=== PATIENT | male | born 2005 | race African-American/Black ===

== ENCOUNTER 2024-10-04 20:41 | Emergency (ER) | payer OTHER ==
[2024-10-04] MEDS ORDERED: Ketorolac Tromethamine 30 MG (1 mL) VIAL ONE (22:30)
[2024-10-04] MEDS ORDERED: Ondansetron PF 4 MG/2 ML Vial ONE (22:30)
[2024-10-04] MEDS ORDERED: HYDROmorphone 0.5 MG/0.5 ML SYRINGE ONE (22:30)
[2024-10-04 23:06] LABS: Hematocrit 22.9 % (42.0-52.0); Hemoglobin 8.2 g/dL (14.0-18.0); Mean Corpuscular Hemoglobin 35.7 pg (27.0-31.0); Mean Corpuscular Volume 99.6 fL (78.0-98.0); Platelet Count 344 10x3/uL (130-400); Red Blood Cell (RBC) Count 2.30 mill/uL (4.70-6.10); White Blood Cell (WBC) Count 14.79 10x3/uL (4.8-10.8)
[2024-10-04 23:31] LABS: Anisocytosis SLIGHT = 6-15 cells HPF (0-5); Nucleated RBC (Manual Ct) 3 % (0); Platelet Adequacy Comment Platelets Normal; Polychromasia MODERATE = 3-4 cells HPF (0-2); Sickle Cells SLIGHT = 1-5 cells HPF (None Seen); Smudge Cells 17.8 %; Target Cells SLIGHT = 2-5 cells HPF (0-1)
[2024-10-04 23:33] LABS: ALT (SGPT) Less than 7 U/L (Less than 45); AST (SGOT) 28 U/L (11-34); Albumin 4.3 g/dL (3.1-4.5); Alkaline Phosphatase 81 U/L (40-110); Anion Gap 13 mmol/L (10-20); BUN (Urea Nitrogen) 9 mg/dL (8.9-20.6); Bilirubin, Total 1.7 mg/dL (0.3-1.2); Calc. Creatinine Clearance 0 mL/min (70-130); Calcium 8.4 mg/dL (7.8-10.44); Carbon Dioxide 22 mmol/L (22-29); Chloride 107 mmol/L (98-107); Globulin 3.1 g/dL (2.4-3.5); Glucose 90 mg/dL (70-105); Potassium 3.5 mmol/L (3.5-5.1); Sodium 138 mmol/L (136-145)
== END 2024-10-05 01:19 | disposition home or self-care (01) ==
LOC: ERS 20:41
DX: D57.00 Hb-SS disease with crisis, unspecified (principal); D64.9 Anemia, unspecified; B20 Human immunodeficiency virus [HIV] disease; Z55.6 Problems related to health literacy; Z79.899 Other long term (current) drug therapy
CPT/HCPCS: 80053; 83605; 85025; 85046; 93005; 96374; 96375; 96376; J1171; J1885

== ENCOUNTER 2024-12-03 18:08 | Inpatient (IN) | payer OTHER ==
[2024-12-03] MEDS ORDERED: diphenhydrAMINE 50 MG/ML VIAL ONE (18:41)
[2024-12-03 19:06] LABS: ALT (SGPT) Less than 7 U/L (Less than 45); AST (SGOT) 35 U/L (11-34); Albumin 4.8 g/dL (3.1-4.5); Alkaline Phosphatase 92 U/L (40-110); Anion Gap 13 mmol/L (10-20); BUN (Urea Nitrogen) 6 mg/dL (8.9-20.6); Bilirubin, Total 1.9 mg/dL (0.3-1.2); Calc. Creatinine Clearance 0 mL/min (70-130); Calcium 9.6 mg/dL (7.8-10.44); Carbon Dioxide 25 mmol/L (22-29); Chloride 106 mmol/L (98-107); Globulin 3.6 g/dL (2.4-3.5); Glucose 88 mg/dL (70-105); Potassium 3.9 mmol/L (3.5-5.1); Sodium 140 mmol/L (136-145)
[2024-12-03 19:26] LABS: Hematocrit 25.9 % (42.0-52.0); Hemoglobin 9.6 g/dL (14.0-18.0); Mean Corpuscular Hemoglobin 35.6 pg (27.0-31.0); Mean Corpuscular Volume 95.9 fL (78.0-98.0); Platelet Count 536 10x3/uL (130-400); Red Blood Cell (RBC) Count 2.70 mill/uL (4.70-6.10); White Blood Cell (WBC) Count 18.40 10x3/uL (4.8-10.8)
[2024-12-03] MEDS ORDERED: Ketorolac Tromethamine 30 MG (1 mL) VIAL ONE (19:26)
[2024-12-03 19:49] LABS: Anisocytosis MODERATE=16-30 cells HPF (0-5); Macrocytosis MODERATE=16-30 cells HPF (0-5); Nucleated RBC (Manual Ct) 1 % (0); Platelet Adequacy Comment Platelets Increased; Polychromasia MODERATE = 3-4 cells HPF (0-2); Sickle Cells MODERATE= 6-15 cells HPF (None Seen); Smudge Cells 22.4 %; Target Cells MODERATE= 6-15 cells HPF (0-1)
[2024-12-04] MEDS ORDERED: diphenhydrAMINE 50 MG/ML VIAL IVP PRN (20:30)
[2024-12-04] MEDS ORDERED: Communication Order-Pharmacy FS SCH (20:30)
[2024-12-04] MEDS ORDERED: diphenhydrAMINE 50 MG/ML VIAL IM PRN (20:30)
[2024-12-04 21:10] LABS: ALT (SGPT) Less than 7 U/L (Less than 45); AST (SGOT) 22 U/L (11-34); Albumin 4.0 g/dL (3.1-4.5); Alkaline Phosphatase 80 U/L (40-110); Anion Gap 12 mmol/L (10-20); BUN (Urea Nitrogen) 4 mg/dL (8.9-20.6); Bilirubin, Total 1.9 mg/dL (0.3-1.2); Calc. Creatinine Clearance 0 mL/min (70-130); Calcium 8.6 mg/dL (7.8-10.44); Carbon Dioxide 24 mmol/L (22-29); Chloride 104 mmol/L (98-107); Globulin 2.9 g/dL (2.4-3.5); Glucose 91 mg/dL (70-105); Potassium 3.7 mmol/L (3.5-5.1); Sodium 136 mmol/L (136-145)
[2024-12-04 21:15] LABS: #Basophils 0.03 10x3/uL (0.0-0.2); #Eosinophils 0.10 10x3/uL (0.0-0.7); #Monocytes 1.49 10x3/uL (0.11-0.59); #Neutrophils 8.93 10x3/uL (1.40-6.50); %Basophils 0.2 % (0.0-1.0); %Eosinophils 0.7 % (0.0-10.0); %Lymphocytes 28.1 % (21.0-51.0); %Monocytes 10.1 % (0.0-10.0); %Neutrophils 60.5 % (42.0-75.0); Hematocrit 25.1 % (42.0-52.0); Hemoglobin 8.8 g/dL (14.0-18.0); Mean Corpuscular Hemoglobin 34.1 pg (27.0-31.0); Mean Corpuscular Volume 97.3 fL (78.0-98.0); Platelet Count 495 10x3/uL (130-400); Red Blood Cell (RBC) Count 2.58 mill/uL (4.70-6.10); White Blood Cell (WBC) Count 14.75 10x3/uL (4.8-10.8)
[2024-12-04] MEDS: HYDROmorphone HCl/0.9% NaCl/PF 30 ML IV SCH (22:40)
[2024-12-05] MEDS: Acetaminophen 325 MG TAB PO PRN (00:07)
[2024-12-05 00:59] VITALS: BMI 22.7
[2024-12-05 02:26] LABS: Influenza A by NAA Not Detected (NotDetected); Influenza B by NAA Not Detected (NotDetected); RSV by NAA Not Detected (NotDetected); SARS-CoV-2 NAA Rapid Test Not Detected (NotDetected)
[2024-12-05] MEDS: VANCOMYCIN 1.75 GM/350 ML Premix BAG IVPB SCH (02:32)
[2024-12-05 05:59] LABS: Bacteria/HPF None Seen HPF (None Seen); CAUTI Indications for Culture Fever or rigors; Glucose, Urine (Dipstick) Normal (Negative); Leukocyte Negative Leu/uL (Negative); Protein, Urine (Dipstick) Negative (Neg-Trace); RBC/HPF None Seen HPF (0-3); Specific Gravity, Urine 1.007 (1.002-1.036); WBC/HPF 0-3 HPF (0-3)
[2024-12-05 06:10] LABS: #Basophils 0.05 10x3/uL (0.0-0.2); #Eosinophils 0.18 10x3/uL (0.0-0.7); #Monocytes 1.55 10x3/uL (0.11-0.59); #Neutrophils 7.85 10x3/uL (1.40-6.50); %Basophils 0.4 % (0.0-1.0); %Eosinophils 1.3 % (0.0-10.0); %Lymphocytes 31.7 % (21.0-51.0); %Monocytes 10.9 % (0.0-10.0); %Neutrophils 55.1 % (42.0-75.0); Hematocrit 25.0 % (42.0-52.0); Hemoglobin 8.7 g/dL (14.0-18.0); Mean Corpuscular Hemoglobin 34.4 pg (27.0-31.0); Mean Corpuscular Volume 98.8 fL (78.0-98.0); Platelet Count 473 10x3/uL (130-400); Red Blood Cell (RBC) Count 2.53 mill/uL (4.70-6.10); White Blood Cell (WBC) Count 14.21 10x3/uL (4.8-10.8)
[2024-12-05 06:19] LABS: Urine Culture Reflex No No
[2024-12-05 06:23] LABS: Anion Gap 11 mmol/L (10-20); BUN (Urea Nitrogen) 5 mg/dL (8.9-20.6); Calc. Creatinine Clearance 181 mL/min (70-130); Calcium 8.6 mg/dL (7.8-10.44); Carbon Dioxide 24 mmol/L (22-29); Chloride 104 mmol/L (98-107); Glucose 93 mg/dL (70-105); Potassium 3.8 mmol/L (3.5-5.1); Sodium 135 mmol/L (136-145); Vancomycin, Random 49.7 ug/mL (See Comment)
[2024-12-05] MEDS: BIKTARVY 50-200-25 MG TABLET PO SCH (08:57)
[2024-12-05] MEDS: Folic Acid 1 MG TAB PO SCH (08:57)
[2024-12-05] MEDS: Vancomycin 1.25 GM / NS 250 ML VIAL-2-BAG IVPB SCH (08:58)
[2024-12-05] MEDS: Enoxaparin 40 MG (0.4 mL) SYRINGE SC SCH (08:58)
[2024-12-05] MEDS: Azithromycin 250 MG TAB PO SCH (14:42)
[2024-12-05] MEDS: Ketorolac Tromethamine 30 MG (1 mL) VIAL IVP PRN (14:42)
[2024-12-05] MEDS: cefTRIAXone\\ROCEPHIN 1 GM in Sodium Chloride 0.9% 100 ML IVPB SCH (14:42)
[2024-12-05] MEDS ORDERED: Vancomycin 1.25 GM / NS 250 ML VIAL-2-BAG IVPB SCH (16:00)
[2024-12-05] MEDS: HYDROmorphone HCl/0.9% NaCl/PF 30 ML IV SCH (16:04)
[2024-12-05] MEDS: Acetaminophen 500 MG TAB PO PRN (19:19)
[2024-12-05] MEDS: Ondansetron PF 4 MG/2 ML Vial IVP PRN (22:46)
[2024-12-06] MEDS: diphenhydrAMINE 25 MG CAP PO PRN (01:30)
[2024-12-06 06:45] LABS: #Basophils 0.03 10x3/uL (0.0-0.2); #Eosinophils 0.25 10x3/uL (0.0-0.7); #Monocytes 0.90 10x3/uL (0.11-0.59); #Neutrophils 5.68 10x3/uL (1.40-6.50); %Basophils 0.3 % (0.0-1.0); %Eosinophils 2.4 % (0.0-10.0); %Lymphocytes 33.9 % (21.0-51.0); %Monocytes 8.6 % (0.0-10.0); %Neutrophils 54.5 % (42.0-75.0); Hematocrit 23.9 % (42.0-52.0); Hemoglobin 8.3 g/dL (14.0-18.0); Mean Corpuscular Hemoglobin 33.7 pg (27.0-31.0); Mean Corpuscular Volume 97.2 fL (78.0-98.0); Platelet Count 405 10x3/uL (130-400); Red Blood Cell (RBC) Count 2.46 mill/uL (4.70-6.10); White Blood Cell (WBC) Count 10.42 10x3/uL (4.8-10.8)
[2024-12-06 07:03] LABS: Anion Gap 10 mmol/L (10-20); BUN (Urea Nitrogen) 7 mg/dL (8.9-20.6); Calc. Creatinine Clearance 184 mL/min (70-130); Calcium 8.4 mg/dL (7.8-10.44); Carbon Dioxide 26 mmol/L (22-29); Chloride 107 mmol/L (98-107); Glucose 96 mg/dL (70-105); Magnesium 1.8 mg/dL (1.6-2.6); Potassium 4.0 mmol/L (3.5-5.1); Sodium 139 mmol/L (136-145)
[2024-12-06] MEDS: Senokot S 8.6-50 MG TAB PO SCH (09:39)
[2024-12-06] MEDS: Ondansetron PF 4 MG/2 ML Vial IVP PRN (09:57)
[2024-12-06] MEDS: HYDROmorphone HCl/0.9% NaCl/PF 30 ML IV SCH (19:18)
[2024-12-07 06:50] LABS: Magnesium 1.6 mg/dL (1.6-2.6)
[2024-12-07] MEDS: Cefdinir 300 MG CAP PO SCH (08:00)
[2024-12-07] MEDS: PNEUMOC 20-VAL CONJ-DIP CRM/PF 0.5 ML SYRINGE IM ONE (11:42)
[2024-12-08 05:15] LABS: Magnesium 1.8 mg/dL (1.6-2.6)
[2024-12-08] MEDS: Transdermal Patch Removal TOP SCH (08:27)
[2024-12-08] MEDS ORDERED: HYDROmorphone HCl/0.9% NaCl/PF 30 ML IV SCH (09:45)
[2024-12-09 12:40] VITALS: BP 119/63; TEMP 97.9
== END 2024-12-09 13:30 | disposition home or self-care (01) | DRG 811 ==
LOC: ERS 18:08 → UNDOADMOB 20:51 → ERHOLD 20:51 → T4-B 12-04 19:56
PROVIDERS: ADMIT Internal Medicine; ATTEND Internal Medicine
DX: D57.00 Hb-SS disease with crisis, unspecified (principal); J18.9 Pneumonia, unspecified organism; D64.9 Anemia, unspecified; Z98.890 Other specified postprocedural states; D72.829 Elevated white blood cell count, unspecified; R50.9 Fever, unspecified; Z21 Asymptomatic human immunodeficiency virus [HIV] infection status; Z79.899 Other long term (current) drug therapy
CPT/HCPCS: 36415; 71045; 80048; 80053; 80202; 81001; 83605; 83615; 83735; 85025; 85046; 86850; 86900; 86901; 87070; 87081; 87205; 87637; 93005; 93970; 96361; 96374; 96375; 96376; J0692; J0696; J1200; J1650; J1885; J2270; J2405; J3373; J3375; J7030; J7050

== ENCOUNTER 2025-02-02 03:10 | Emergency (ER) | payer OTHER, SELFPAY ==
[2025-02-02] MEDS ORDERED: diphenhydrAMINE 50 MG/ML VIAL ONE (03:44)
[2025-02-02] MEDS ORDERED: Ondansetron PF 4 MG/2 ML Vial ONE (03:44)
[2025-02-02 04:29] LABS: #Basophils 0.07 10x3/uL (0.0-0.2); #Eosinophils 0.16 10x3/uL (0.0-0.7); #Monocytes 0.97 10x3/uL (0.11-0.59); #Neutrophils 4.98 10x3/uL (1.40-6.50); %Basophils 0.5 % (0.0-1.0); %Eosinophils 1.2 % (0.0-10.0); %Lymphocytes 50.6 % (21.0-51.0); %Monocytes 7.5 % (0.0-10.0); %Neutrophils 38.9 % (42.0-75.0); Hematocrit 25.6 % (42.0-52.0); Hemoglobin 9.4 g/dL (14.0-18.0); Mean Corpuscular Hemoglobin 37.5 pg (27.0-31.0); Mean Corpuscular Volume 102.0 fL (78.0-98.0); Platelet Count 262 10x3/uL (130-400); Red Blood Cell (RBC) Count 2.51 mill/uL (4.70-6.10); White Blood Cell (WBC) Count 12.86 10x3/uL (4.8-10.8)
[2025-02-02 04:44] LABS: ALT (SGPT) 8 U/L (Less than 45); AST (SGOT) 39 U/L (11-34); Albumin 4.7 g/dL (3.1-4.5); Alkaline Phosphatase 82 U/L (40-110); Anion Gap 14 mmol/L (10-20); BUN (Urea Nitrogen) 10 mg/dL (8.9-20.6); Bilirubin, Total 2.0 mg/dL (0.3-1.2); Calc. Creatinine Clearance 0 mL/min (70-130); Calcium 9.1 mg/dL (7.8-10.44); Carbon Dioxide 24 mmol/L (22-29); Chloride 106 mmol/L (98-107); Globulin 3.0 g/dL (2.4-3.5); Glucose 102 mg/dL (70-105); Lipase 17 U/L (8-78); Potassium 3.9 mmol/L (3.5-5.1); Sodium 140 mmol/L (136-145)
== END 2025-02-02 05:26 | disposition home or self-care (01) ==
LOC: ERS 03:10
DX: D57.00 Hb-SS disease with crisis, unspecified (principal); B20 Human immunodeficiency virus [HIV] disease; Z79.899 Other long term (current) drug therapy
CPT/HCPCS: 71045; 80053; 83690; 85025; 85046; 93005; 96374; 96375; J1200; J2270; J2405